=== PATIENT | male | born 1950 | race Caucasian/White ===

== ENCOUNTER 2016-08-13 10:15 | Day surgery (SDC) | payer OTHER ==
[~2016-08-13] VITALS: Ht 182.9 cm; Wt 89.0 kg
[~2016-08-13 10:15] MED LIST: 0.9% Sodium Chloride 1,000 ML IV SCH; ASPI-973 PO; EZET1TAB6 PO; GLUC100016 PO; HYG25 PO; LOSA50TA37 PO; Lactated Ringer's 1,000 ML IV ONE; METO25TA6 PO; OMEG500C PO; PANT40TA2 PO; Sodium Chloride LOK Flush 10 mL Syringe IV PRN; fentaNYL-PF 50 mCg/mL 2 mL Inj IVPUSH PRN
[2016-08-13 10:36] VITALS: BP 152/85; PULSE 90; RESP 14; O2SAT 96
--- NOTE | 2016-08-13 13:06 | PCM.ENDEGD ---
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 Scope introduced esophagus. Esophagus showed normal shiny whitish mucosa consistent with squamous cell component. Z line irregularity at 45 cm from the incisors. There was some displacement of mucosa and 4 quadrant biopsies obtained. Narrow banding used. No ulcer no mass no erosion nodules noted. Scope further advanced to the stomach. Stomach showed normal shiny mucosa with normal appearing rugae folds without any ulcer mass erosion. Stomach showed few 4 mm or less fundic polyp. Sampling biopsies obtained. Cardia fundus body antrum pylorus were all visualized. Retroflexion was done. Stomach was easily inflated and deflatable using air. Scope further events to the distal duodenum. Duodenum revealed normal villous structures with normal appearing folds without any mass ulcer erosion. 5-6 biopsies obtained for celiac disease. Impression Possible Power's Fundic polyps Recommendation Biopsies Presedation Assessment Risks and Benefits Informed consent was obtained from the patient after all risks and benefits including but not limited to drug reaction, infection, pain, bleeding, perforation, as well as alternatives were discussed. Patient monitoring Continuous pulse oximetry, cardiac monitoring, blood pressure monitoring, IV access, and oxygen at 2L per nasal cannula. Periprocedural Fentanyl: Fentanyl 150mcg Incrementally Midazolam: Midazolam 8mg Incrementally Complications There were no periprocedural complications identified. Post Procedure Plan Post Procedure Recommendations 1. Restrict activities today. 2. Resume normal activities in the morning. 3. Resume medications. 4. GERD behavioral modification: - Avoid fatty, acidic, spicy, large meals - Do not lie down after meals - Do not eat or drink anything for at least 2 1/2 hours before going to bed at night - Discontinue tobacco and alcohol - Decrease or avoid caffeine - Avoid chocolate and mints - Decrease weight - Avoid aspirin and non steroidal anti-inflammatory agents (NSAID) such as Aleve, Advil, Mobic, Naproxen, Ibuprofen, etc 5. Add proton pump inhibitor. Take 30 minutes before 1st meal of the day. 6. Patient informed of normal post procedure side effects as bloating, drowsiness, blood streaking in the stool 7. If gastric biopsy reveal H.pylori, continue with appropriate treatment 8. If small bowel biopsy reveals celiac, continue with appropriate treatment 9. Please don't hesitate to call me with any questions Harvey Goldberg MD August 13, 2016 13:06
[2016-08-13 13:07] VITALS: BP 128/78; PULSE 89; RESP 14; O2SAT 96
--- NOTE | 2016-08-13 13:08 | PCM.ENDCOL ---
Colonoscopy Date of Service: August 13, 2016 Physician Harvey Goldberg MD Pre Procedure Diagnosis: Iron deficiency anemia did not intubate the terminal ileum Post Procedure Dx & Findings: Normal TI diverticuli hemorrhoids Procedure Colonoscopy PROCEDURE IN DETAIL: Prep fair After unremarkable rectal examination the Olympus video colonoscope was inserted patient's anal canal and was advanced to cecum. Landmarks were identified including the ileocecal valve and appendiceal orifice. Scope further advanced to the terminal ileum. We advanced 10 cm. Terminal ileum showed normal villous structures without any ulcer mass or erosions. Scope was withdrawn systematically. Visualized colonic mucosa showed healthy shiny mucosa with normal healthy-appearing vasculature. Few small diverticuli noted up to the descending colon from the sigmoid colon. In the rectum, there was a 1 mm polyp which was removed completely using cold forceps. In the rectum retroflexion was done which showed hemorrhoids. Anal canal was inspected carefully on the way out and hemorrhoids noted. Impression Normal TI Diverticuli Polyp 1. Complete removal. Hemorrhoids Recommendation Follow up in GI clinic. Diverticular diet Presedation Assessment Risks and Benefits Informed consent was obtained from the patient after all risks and benefits including but not limited to drug reaction, infection, pain, bleeding, perforation, as well as alternatives were discussed. Patient monitoring Continuous pulse oximetry, cardiac monitoring, blood pressure monitoring, IV access, and oxygen at 2L per nasal cannula. Complications There were no periprocedural complications identified. Post Procedure Plan Post Procedure Recommendations 1. Restrict activities today. 2. Resume normal activities in the morning. 3. Resume medications. 4. Patient informed of normal post procedure side effects as bloating, drowsiness, blood streaking in the stool. 5. average risk CRCS. If colon polyps come back as: -Hyperplastic- can repeat colonoscopy in 10 years -Tubular adenoma- repeat colonoscopy in 5 years -Tubulovillous/villous adenoma- repeat colonoscopy in 3 years -If any dysplasia- return to clinic as soon as possible 6. Please don't hesitate to call me with any questions. Harvey Goldberg MD August 13, 2016 13:08
[2016-08-13 13:16] VITALS: BP 130/79; PULSE 87; RESP 12; O2SAT 93
[2016-08-13 13:18] VITALS: BP 135/78; PULSE 95; RESP 14; O2SAT 96
--- NOTE | 2016-08-16 14:36 | PATH ---
SURGICAL PATHOLOGY Attending Physician:Harvey Goldberg M.D. CASE STATUS: Signed Out PATIENT NAME: CHELSEA ENGLISH PID: [id number] : 1950 DATE COLLECTED:08/13/2016 22:19 SPECIMEN: 1: Duodenum, Biopsy 2: Stomach, Polyp, Biopsy 3: Esophagus, Biopsy 4: Rectum, Biopsy CLINICAL HISTORY: 1). DUODENUM 2). GASTRIC POLYP 3). DISTAL ESOPHAGUS 4). RECTUM POLYP FINAL DIAGNOSIS: 1. Duodenum, Biopsy: Duodenal mucosa with no diagnostic abnormality. Negative for active inflammation, feature of sprue, dysplasia, or malignancy. 2. Gastric Polyp, Biopsy: Portions of fundic gland polyp. Negative for intestinal metaplasia, dysplasia, and malignancy. 3. Distal Esophagus, Biopsy: Minute focus of metaplastic squamous mucosa and inflamed oxyntic mucosa. Negative for intestinal metaplasia. Negative for dysplasia and malignancy. No well-preserved squamocolumnar junction identified. 4. Rectal Polyp, Biopsy: Hyperplastic polyp. ICD10: K63.5 GROSS DESCRIPTION: The specimen is received in four formalin filled containers labeled with the patient's name. 1). The specimen is sublabeled "duodenum" and consists of are 4 portions of tissue which aggregate to 0.3 x 0.2 x 0.1 CM. The specimen is entirely submitted in cassette 1A. 2). The specimen is sublabeled "gastric polyp" and consists of 4 tiny portions of tissue which aggregate to 0.3 x 0.2 x 0.2 CM. The specimen is entirely submitted in cassette 2A. 3). The specimen is sublabeled "distal esophagus" and consists of 3 portions of tissue which aggregate to 0.3 x 0.3 x 0.3 CM. The specimen is entirely submitted in cassettes 3A. 4). The specimen is sublabeled "rectal polyp" and consists of a 0.2 x 0.2 x 0.2 CM portion of tissue which is entirely submitted in cassette 4A. 08/14/2016 [facility] ICD-9 CODES: CPT CODES: 1: 73311 2: 89032 3: 21896 4: 83157 Electronically Signed Out Joleen Clarke MD Merged With [facility], [place] [address] Technical component performed at [facility], [address], [place], [address]
== END 2016-08-13 23:59 | disposition home or self-care (01) ==
LOC: END 10:15
PROVIDERS: ATTEND Internal Medicine
DX: E61.1 Iron deficiency (principal); K57.30 Diverticulosis of large intestine without perforation or abscess without bleeding; K62.1 Rectal polyp; K31.7 Polyp of stomach and duodenum; K20.9 Esophagitis, unspecified; Z79.82 Long term (current) use of aspirin; Z79.899 Other long term (current) drug therapy; Z87.891 Personal history of nicotine dependence